=== PATIENT | male | born 1980 | race Caucasian/White ===

== ENCOUNTER 2019-02-21 08:50 | Emergency (ER) | payer OTHER ==
[~2019-02-21] VITALS: Ht 170.2 cm; Wt 81.6 kg
[~2019-02-21 08:50] MED LIST: HYDROCODONE/ACETAMINOPHEN 10-3
--- NOTE | 2019-02-21 08:53 | NUR ---
pt ambulated to er bed 09
[2019-02-21 09:10] VITALS: BP 162/89
[2019-02-21] MEDS ORDERED: KETOROLAC 30 MG/ML VIAL IM ONE (09:10)
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
--- NOTE | 2019-02-21 09:15 | NUR ---
RESIDENT DOCTOR AT THE BEDSIDE FOR PT EVALUATION.
[2019-02-21 09:50] VITALS: BP 136/79
== END 2019-02-21 09:50 | disposition home or self-care (01) ==
LOC: MED 08:50
DX: S20.20XA Contusion of thorax, unspecified, initial encounter (principal); Z79.899 Other long term (current) drug therapy; V87.8XXA Person injured in other specified noncollision transport accidents involving motor vehicle (traffic), initial encounter; Y93.89 Activity, other specified; Y92.89 Other specified places as the place of occurrence of the external cause; Y99.8 Other external cause status
CPT/HCPCS: 71045; 81002; 96372; 99283; J1885; Q0092

== ENCOUNTER 2019-03-02 19:38 | Emergency (ER) | payer SELFPAY ==
[~2019-03-02] VITALS: Ht 167.6 cm; Wt 81.6 kg
[2019-03-02 19:44] VITALS: BP 129/81
--- NOTE | 2019-03-02 19:44 | NUR ---
TO BED # 6 AMBULATORY , REPORT GIVEN TO MAXX ENNIS
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
--- NOTE | 2019-03-02 20:00 | NUR ---
PT ESCORTED TO XRAY BY [facility].
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
[2019-03-02 20:52] VITALS: BP 145/88
--- NOTE | 2019-03-02 20:52 | NUR ---
Patient discharged with v/s stable. Written and verbal after care instructions given and explained. Patient alert, oriented and verbalized understanding of instructions. Ambulatory with steady gait. All questions addressed prior to discharge. ID band removed. Patient advised to follow up with PMD. Rx of FLEXERIL, IBUPROFEN given. Patient educated on indication of medication including possible reaction and side effects. Opportunity to ask questions provided and answered.
== END 2019-03-02 20:52 | disposition home or self-care (01) ==
LOC: MED 19:38
DX: S20.212A Contusion of left front wall of thorax, initial encounter (principal); Z79.891 Long term (current) use of opiate analgesic; V28.4XXA Motorcycle driver injured in noncollision transport accident in traffic accident, initial encounter; Y93.55 Activity, bike riding; Y92.89 Other specified places as the place of occurrence of the external cause; Y99.8 Other external cause status
CPT/HCPCS: 71101; 99283

== ENCOUNTER 2021-08-19 10:16 | Emergency (ER) | payer MEDICAID ==
[~2021-08-19] VITALS: Ht 167.6 cm; Wt 86.2 kg
[2021-08-19 10:27] VITALS: BP 137/93
--- NOTE | 2021-08-19 10:33 | NUR ---
PT WAS TRIAGED, UNABLE TO PROVIDE URINE SAMPLE AT THIS TIME, WAS GIVEN URINE CUP.
[2021-08-19] MEDS ORDERED: DICYCLOMINE 20 MG/2 ML VIAL IM ONE (11:05)
--- NOTE | 2021-08-19 11:08 | NUR ---
LABS WERE DRAWN IN TRIAGE ROOM AND PT WAS TAKEN TO ROOM 2. AMBULATED WITH EVEN AND STEADY GAIT.
[2021-08-19 11:15] LABS: BASOPHILS % (AUTO) 0.7 % (0.0-2.0); EOSINOPHILS # (AUTO) 0.4 K/uL (0-0.4); EOSINOPHILS % (AUTO) 5.6 % (0.0-4.0); HEMATOCRIT 45.5 % (36-52); HEMOGLOBIN 15.8 g/dL (12.0-18.0); LYMPHOCYTES # (AUTO) 2.8 K/uL (2.0-11.5); LYMPHOCYTES % (AUTO) 40.7 % (20.5-51.1); MEAN CORPUSCULAR HEMOGLOBIN 34 pg (27-31); MEAN CORPUSCULAR HGB CONC 35 g/dL (33-37); MEAN CORPUSCULAR VOLUME 97.7 fL (80-94); MONOCYTES # (AUTO) 0.8 K/uL (0.8-1.0); MONOCYTES % (AUTO) 12.4 % (1.7-9.3); NEUTROPHILS # (AUTO) 2.8 K/uL (1.8-7.7); NEUTROPHILS % (AUTO) 40.6 % (42.2-75.2); PLATELET COUNT (AUTO) 440 K/uL (140-450); RED BLOOD CELL COUNT(AUTO) 4.65 MIL/uL (4.20-6.10); RED CELL DISTRIBUTION WIDTH 13.2 % (11.6-13.7); WHITE BLOOD COUNT (AUTO) 6.8 K/uL (4.8-10.8)
[2021-08-19 11:29] LABS: ANION GAP 15.2 (8-16); CARBON DIOXIDE 24.6 mmol/L (21-32); CREATININE 0.9 mg/dL (0.6-1.3); POTASSIUM 3.8 mmol/L (3.5-5.1)
--- NOTE | 2021-08-19 11:30 | NUR ---
PT CC DIARRHEA , REPORTS DARK STOOLS, REPORTS ACOMPANIED WITH PAIN OCCASIONALLY. NO ACTIVE PAIN AT THIS TIME. DENIES NV. DENIES BLOOD IN STOOL. HX OF HEAVY ETOH SINCE AGE 16. PT CALM COOPERATIVE, BREATHING EVEN UNLAB, CHEST RISE FALL EQUAL. DENIES DIZZINESS LIGHTHEADNESS AT THIS TIME. 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
[2021-08-19 11:35] LABS: TOTAL BILIRUBIN 0.2 mg/dL (0.0-1.0)
[2021-08-19] MEDS ORDERED: BEN10 PO (12:01)
--- NOTE | 2021-08-19 13:00 | NUR ---
pt reports feeling improvmeent, no nvd. no dizzines/lightheadness. ambulatory with steady gait. chest rise fall equal. pending ct scan results.
--- NOTE | 2021-08-19 13:22 | NUR ---
notified dr spencer regarding pt unable to wait any longer. ok for dc per dr spencer.
[2021-08-19 13:27] VITALS: BP 113/72
--- NOTE | 2021-08-19 13:30 | NUR ---
Patient discharged with v/s stable. Written and verbal after care instructions given and explained. Patient alert, oriented and verbalized understanding of instructions. Ambulatory with steady gait. All questions addressed prior to discharge. ID band removed. Patient advised to follow up with PMD. Rx of dycyclomine given. Patient educated on indication of medication including possible reaction and side effects. Opportunity to ask questions provided and answered.
== END 2021-08-19 13:30 | disposition home or self-care (01) ==
LOC: MED 10:16
DX: R10.9 Unspecified abdominal pain (principal); R19.7 Diarrhea, unspecified; Z79.899 Other long term (current) drug therapy; Z98.890 Other specified postprocedural states
CPT/HCPCS: 36415; 74176; 80053; 81002; 83690; 85025; 96372; 99284; J0500

== ENCOUNTER 2022-08-24 09:03 | Emergency (ER) | payer MEDICAID ==
[~2022-08-24] VITALS: Ht 167.6 cm; Wt 81.2 kg
[~2022-08-24 09:03] MED LIST changes: +BEN10 PO
[2022-08-24 09:16] VITALS: BP 120/80
--- NOTE | 2022-08-24 09:50 | NUR ---
41/M PRESENTS TO ED WITH C/O RIGHT EAR PAIN AND NON PRODUCTIVE COUGH X1 WEEK. PATIENT DENIES RECENT FEVERS, CHILLS, N/V/D OR RECENT SICK CONTACT. DENIES TAKING MEDS FOR SYMPTOMS.
[2022-08-24] MEDS ORDERED: AMOX-999 PO (09:53)
--- NOTE | 2022-08-24 10:08 | NUR ---
Patient discharged with v/s stable. Written and verbal after care instructions ABOUT [employer]IT[employer] MEDIA given and explained. Patient alert, oriented and verbalized understanding of instructions. Ambulatory with steady gait. All questions addressed prior to discharge. ID band removed. Patient advised to follow up with PMD. Rx of AUGMENTIN 500-125 given. Patient educated on indication of medication including possible reaction and side effects. Opportunity to ask questions provided and answered.
== END 2022-08-24 10:08 | disposition home or self-care (01) ==
LOC: MED 09:03
DX: J06.9 Acute upper respiratory infection, unspecified (principal); H66.91 Otitis media, unspecified, right ear
CPT/HCPCS: 99283

== ENCOUNTER 2023-07-20 17:44 | Emergency (ER) | payer MEDICAID ==
[~2023-07-20] VITALS: Ht 167.6 cm; Wt 81.6 kg
[~2023-07-20 17:44] MED LIST changes: +AMOX-999 PO
[2023-07-20 18:08] VITALS: BP 138/89; PULSE 90; RESP 18; TEMP 98.4; O2SAT 99
[2023-07-20] MEDS ORDERED: KETOROLAC 60 MG/2 ML VIAL IM ONE (19:45)
[2023-07-20] MEDS ORDERED: IBUP-2213 PO (19:55)
[2023-07-20] MEDS ORDERED: LOPE-289 PO (19:55)
[2023-07-20] MEDS ORDERED: ONDA8TAB87 PO (19:55)
[2023-07-20] MEDS ORDERED: CIPR500T4 PO (19:55)
== END 2023-07-20 20:30 | disposition home or self-care (01) ==
LOC: MED 17:44
DX: R10.32 Left lower quadrant pain (principal); R50.9 Fever, unspecified; R11.2 Nausea with vomiting, unspecified; R19.7 Diarrhea, unspecified; Z79.899 Other long term (current) drug therapy
CPT/HCPCS: 96372; 99283; J1885

== ENCOUNTER 2023-12-05 08:11 | Emergency (ER) | payer MEDICAID ==
[~2023-12-05] VITALS: Ht 167.6 cm; Wt 81.6 kg
[~2023-12-05 08:11] MED LIST changes: +CIPR500T4 PO; +IBUP-2213 PO; +LOPE-289 PO; +ONDA8TAB87 PO
[2023-12-05 08:22] VITALS: BP 121/89; PULSE 69; RESP 16; TEMP 98.6; O2SAT 98
[2023-12-05] MEDS ORDERED: KETOROLAC 60 MG/2 ML VIAL IM ONE (08:50)
[2023-12-05] MEDS ORDERED: MELO-176 PO (09:28)
[2023-12-05 10:27] VITALS: BP 121/89; PULSE 69; RESP 16; TEMP 98.6; O2SAT 98
== END 2023-12-05 10:28 | disposition home or self-care (01) ==
LOC: MED 08:11
DX: S43.491A Other sprain of right shoulder joint, initial encounter (principal); M75.101 Unspecified rotator cuff tear or rupture of right shoulder, not specified as traumatic; X58.XXXA Exposure to other specified factors, initial encounter; Y93.89 Activity, other specified; Y92.89 Other specified places as the place of occurrence of the external cause; Y99.8 Other external cause status
CPT/HCPCS: 73030; 96372; 99283; J1885